=== PATIENT | male | born 1970 | race Hispanic/Latino ===

== ENCOUNTER 2020-08-22 00:41 | Emergency (ER) | payer OTHER, SELFPAY ==
[2020-08-22 01:21] LABS: #Basophils 0.1 thou/uL (0.0-0.2); #Eosinphils 0.1 thou/uL (0.0-0.7); #Lymphocytes 3.2 thou/uL (1.20-3.40); #Monocytes 0.6 thou/uL (0.11-0.59); #Neutrophils 2.9 thou/uL (1.40-6.50); %Basophils 2.1 % (0.0-1.0); %Eosinophils 2.1 % (0.0-10.0); %Lymphocytes 45.4 % (21.0-51.0); %Monocytes 8.5 % (0.0-10.0); %Neutrophils 41.9 % (42.0-75.0); Hemoglobin 13.9 g/dL (14.0-18.0); Mean Corpuscular HGB CONC 34.9 g/dL (32.0-36.0); Mean Corpuscular Hemoglobin 32.5 pg (27.0-31.0); Mean Platelet Volume 6.8 fL (7.4-10.4); Platelet Count 273 thou/uL (130-400); RBC Distribution Width 12.4 % (11.5-14.5); Red Blood Cell (RBC) Count 4.28 mill/uL (4.70-6.10)
[2020-08-22] MEDS ORDERED: Morphine 4 MG/ML VIAL ONE (01:23)
[2020-08-22 01:41] LABS: ALT (SGPT) 11 U/L (8-55); AST (SGOT) 12 U/L (5-34); Albumin 3.9 g/dL (3.5-5.0); Alkaline Phosphatase 63 U/L (40-110); Anion Gap 13 mmol/L (10-20); BUN (Urea Nitrogen) 6 mg/dL (8.4-25.7); Bilirubin, Total 0.6 mg/dL (0.2-1.2); Calc. Creatinine Clearance 0 mL/min (70-130); Calcium 8.9 mg/dL (7.8-10.44); Carbon Dioxide 24 mmol/L (22-29); Chloride 94 mmol/L (98-107); Globulin 3.2 g/dL (2.4-3.5); Glucose 138 mg/dL (70-105); Lipase 39 U/L (8-78); Potassium 3.5 mmol/L (3.5-5.1); Protein, Total 7.1 g/dL (6.0-8.3); Sodium 127 mmol/L (136-145)
[2020-08-22 02:41] LABS: Bilirubin Negative (Negative); Blood, Urine Negative (Negative); Clarity Clear (Clear); Glucose, Urine (Dipstick) 30 mg/dL (Negative); Ketone, Urine Negative (Negative); Leukocyte Negative Leu/uL (Negative); Nitrite Negative (Negative); Protein, Urine (Dipstick) Negative (Neg-Trace); Specific Gravity, Urine 1.036 (1.002-1.036); Urobilinogen Normal mg/dL (Less than 2); pH, Urine 6.5 (5.0-9.0)
--- NOTE | 2020-08-22 09:06 | CT ---
PRELIMINARY REPORT/[facility]/EMERGENCY AFTER HOURS PROCEDURE EXAM: CT Abdomen and Pelvis with Intravenous Contrast CLINICAL HISTORY: M50, RLQ PAIN STARTED EARLIER TODAY. PT ALSO COMPLAINS OF "SORE GENITALS." NO N/V/D/C. TECHNIQUE: Axial computed tomography images of the abdomen and pelvis with intravenous contrast. CONTRAST: With; ISOVUE 370,80mL COMPARISON: None provided. FINDINGS: LUNG BASES: No basilar airspace consolidation or pleural effusion. LIVER: Unremarkable. GALLBLADDER AND BILE DUCTS: Cholecystectomy. No ductal dilation. PANCREAS: Unremarkable. SPLEEN: Unremarkable. ADRENAL GLANDS: Unremarkable. KIDNEYS, URETERS, AND BLADDER: Unremarkable. No hydronephrosis or nephrolithiasis. No ureteral or bladder calculi. STOMACH AND BOWEL: No obstruction. No wall thickening. Mild scattered colonic diverticuli. No CT evidence of colitis o r acute diverticulitis. APPENDIX: No CT evidence for appendicitis. PERITONEUM: No free fluid. No free air. LYMPH NODES: No lymphadenopathy. REPRODUCTIVE: Unremarkable as visualized. VASCULATURE: No aortic aneurysm. BONES: No fracture or suspicious osseous abnormality. Moderate multilevel lumbar spondylosis. ABDOMINAL WALL AND SOFT TISSUES: Bilateral fat-containing inguinal hernias. IMPRESSION: No acute intra-abdominal or pelvic abnormality. ELECTRONICALLY SIGNED BY: Dirk Carrion DO Aug 22, 2020 1:55:39 AM HEAD IRRIGATOR This report is intended for review by the ordering physician only, in accordance of law. If you recei ve this report in error, please call [facility] at [phone]. FINAL REPORT FINAL REPORT: CT abdomen and pelvis with IV contrast PROVIDED CLINICAL HISTORY: Right lower quadrant pain COMPARISON: None FINDINGS/IMPRESSION: Agree with the preliminary interpretation given by [facility]. Transcribed Date/Time: 08/22/2020 9:18 AM
[2020-08-22] MEDS ORDERED: Iopamidol-370 76% 500 ML 1 ML ONE (12:09)
== END 2020-08-22 03:28 | disposition home or self-care (01) ==
LOC: ERS 00:41
DX: K59.00 Constipation, unspecified (principal); E87.1 Hypo-osmolality and hyponatremia
CPT/HCPCS: 36415; 74177; 80053; 81003; 83690; 85025; 96374; J2270; Q9967

== ENCOUNTER 2021-04-28 09:29 | Outpatient (CLI) | payer BC ==
[~2021-04-28 09:29] MED LIST: Iopamidol-370 76% 500 ML 1 ML ONE
== END 2021-04-28 09:30 | disposition home or self-care (01) ==
LOC: BICCT 09:29
PROVIDERS: ATTEND Internal Medicine Gastroenterology
DX: R10.11 Right upper quadrant pain (principal); R63.4 Abnormal weight loss; K21.9 Gastro-esophageal reflux disease without esophagitis; K22.2 Esophageal obstruction; R19.7 Diarrhea, unspecified; K76.89 Other specified diseases of liver; Z86.010 Personal history of colon polyps
CPT/HCPCS: 74177; Q9967

== ENCOUNTER 2021-05-27 09:40 | Outpatient (CLI) | payer BC | END 2021-05-27 09:41 | disposition home or self-care (01) | LOC: NM 09:40 | PROVIDERS: ATTEND Internal Medicine Gastroenterology | DX: R10.11 Right upper quadrant pain (principal); Z90.49 Acquired absence of other specified parts of digestive tract | CPT/HCPCS: 78226; A9537 ==

== ENCOUNTER 2022-10-25 18:58 | Inpatient (IN) | payer BC, OTHER ==
[~2022-10-25 18:58] MED LIST changes: +Iopamidol 370 76% 100 ML VIAL ONE; -Iopamidol-370 76% 500 ML 1 ML ONE
[2022-10-25 19:33] LABS: #Lymphocytes 1.6 thou/uL (1.20-3.40); #Monocytes 1.1 thou/uL (0.11-0.59); #Neutrophils 15.5 thou/uL (1.40-6.50); %Basophils 0.3 % (0.0-1.0); %Eosinophils 0.2 % (0.0-10.0); %Lymphocytes 8.8 % (21.0-51.0); %Monocytes 5.9 % (0.0-10.0); %Neutrophils 84.9 % (42.0-75.0); Hemoglobin 13.1 g/dL (14.0-18.0); Mean Corpuscular HGB CONC 33.2 g/dL (32.0-36.0); Mean Corpuscular Hemoglobin 30.7 pg (27.0-31.0); Mean Corpuscular Volume 92.4 fl (78.0-98.0); Mean Platelet Volume 7.6 fL (7.4-10.4); Platelet Count 208 10x3/uL (130-400); RBC Distribution Width 12.5 % (11.5-14.5); Red Blood Cell (RBC) Count 4.27 mill/uL (4.70-6.10); White Blood Cell (WBC) Count 18.3 10x3/uL (4.8-10.8)
[2022-10-25 19:57] LABS: ALT (SGPT) 17 U/L (8-55); AST (SGOT) 15 U/L (5-34); Albumin 3.9 g/dL (3.5-5.0); Alkaline Phosphatase 106 U/L (40-110); Anion Gap 16 mmol/L (10-20); BUN (Urea Nitrogen) 16 mg/dL (8.4-25.7); Bilirubin, Total 0.4 mg/dL (0.2-1.2); Calc. Creatinine Clearance 0 mL/min (70-130); Calcium 8.5 mg/dL (7.8-10.44); Carbon Dioxide 19 mmol/L (22-29); Chloride 105 mmol/L (98-107); Estimated GFR 80; Globulin 3.1 g/dL (2.4-3.5); Glucose 262 mg/dL (70-105); Potassium 4.2 mmol/L (3.5-5.1); Sodium 136 mmol/L (136-145)
[2022-10-25 19:59] LABS: Troponin I 0.013 ng/mL (< 0.028)
[2022-10-25 20:33] LABS: Prothrombin Time 13.8 sec (12.0-14.7)
[2022-10-25] MEDS ORDERED: Ondansetron ODT 4 MG TAB PO PRN (20:57)
[2022-10-25] MEDS ORDERED: Dextrose 5% in Water 1,000 ML IV PRN (20:57)
[2022-10-25] MEDS ORDERED: Ondansetron PF 4 MG/2 ML Vial IVP PRN (20:57)
[2022-10-25] MEDS ORDERED: TETANUS, DIPHTHERIA TOX,ADULT (TDVAX) 0.5 ML VIAL IM ONE (20:57)
[2022-10-25] MEDS ORDERED: Morphine 2 MG/ML VIAL SLOW IVP PRN (20:57)
[2022-10-25] MEDS ORDERED: Dextrose 50% Abboject 50 ML SYRINGE SLOW IVP PRN (20:57)
[2022-10-25] MEDS ORDERED: Sodium Chloride 0.9% 1,000 ML IV SCH (21:00)
[2022-10-25] MEDS ORDERED: fentaNYL 50 mcg/mL 1 mL Vial ONE (21:54)
[2022-10-25 22:31] LABS: Hemoglobin A1c 9.1 % (4.0-6.0)
[2022-10-25] MEDS: Morphine 4 MG/ML VIAL SLOW IVP PRN (22:44)
[2022-10-25] MEDS: Famotidine/PF 20 mg/2ml Vial SLOW IVP SCH (22:46)
[2022-10-25] MEDS: Sodium Chloride 0.9% 1,000 ML IV SCH (22:48)
[2022-10-25 23:05] VITALS: BMI 29.4
[2022-10-26] MEDS: Morphine 4 MG/ML VIAL SLOW IVP PRN ×2 (01:09→20:02)
[2022-10-26 01:19] LABS: Lactic Acid 2.1 mmol/L (0.5-2.2)
[2022-10-26 01:59] LABS: Hemoglobin 11.4 g/dL (14.0-18.0)
[2022-10-26 04:17] LABS: Mean Corpuscular HGB CONC 34.1 g/dL (32.0-36.0); Mean Corpuscular Hemoglobin 31.4 pg (27.0-31.0); Mean Corpuscular Volume 92.1 fl (78.0-98.0); Mean Platelet Volume 7.7 fL (7.4-10.4); Platelet Count 163 10x3/uL (130-400); RBC Distribution Width 12.6 % (11.5-14.5); Red Blood Cell (RBC) Count 3.51 mill/uL (4.70-6.10); White Blood Cell (WBC) Count 7.7 10x3/uL (4.8-10.8)
[2022-10-26 04:18] LABS: #Lymphocytes 1.7 thou/uL (1.20-3.40); #Monocytes 0.6 thou/uL (0.11-0.59); #Neutrophils 5.3 thou/uL (1.40-6.50); %Basophils 0.5 % (0.0-1.0); %Eosinophils 0.3 % (0.0-10.0); %Lymphocytes 21.9 % (21.0-51.0); %Monocytes 8.3 % (0.0-10.0)
[2022-10-26 04:22] LABS: Phosphorus 3.8 mg/dL (2.3-4.7)
[2022-10-26 04:26] LABS: Anion Gap 12 mmol/L (10-20); BUN (Urea Nitrogen) 17 mg/dL (8.4-25.7); Calc. Creatinine Clearance 137 mL/min (70-130); Calcium 7.8 mg/dL (7.8-10.44); Carbon Dioxide 20 mmol/L (22-29); Chloride 107 mmol/L (98-107); Estimated GFR 105; Glucose 211 mg/dL (70-105); Magnesium 1.8 mg/dL (1.6-2.6); Potassium 4.2 mmol/L (3.5-5.1); Sodium 135 mmol/L (136-145)
[2022-10-26] MEDS: Sodium Chloride 0.9% 1,000 ML IV SCH ×3 (06:13→23:30)
[2022-10-26 07:24] LABS: Hemoglobin 11.3 g/dL (14.0-18.0)
[2022-10-26] MEDS ORDERED: Insulin Regular 300 UNITS/3 ML VIAL SC PRN ×2 (07:27)
[2022-10-26] MEDS: Famotidine/PF 20 mg/2ml Vial SLOW IVP SCH ×2 (08:21→20:03)
[2022-10-26] MEDS ORDERED: Magnesium 2 GM/50 ML(in water) 2 GM in Premix Bag 1 BAG IVPB SCH (08:30)
[2022-10-26] MEDS ORDERED: traMADol HCl 50 MG TAB PO PRN (12:46)
[2022-10-26] MEDS ORDERED: Cyclobenzaprine 10 MG TAB PO PRN (12:46)
[2022-10-26 13:13] LABS: Hemoglobin 10.5 g/dL (14.0-18.0); Mean Corpuscular HGB CONC 33.3 g/dL (32.0-36.0); Mean Corpuscular Volume 93.2 fl (78.0-98.0); Mean Platelet Volume 7.4 fL (7.4-10.4); Platelet Count 163 10x3/uL (130-400); RBC Distribution Width 12.7 % (11.5-14.5); Red Blood Cell (RBC) Count 3.39 mill/uL (4.70-6.10); White Blood Cell (WBC) Count 7.3 10x3/uL (4.8-10.8)
[2022-10-26] MEDS ORDERED: traMADol HCl 50 MG TAB PO SCH (13:30)
[2022-10-26] MEDS ORDERED: Acetaminophen 500 MG TAB PO SCH (13:30)
[2022-10-26] MEDS: Gabapentin 100 MG CAP PO SCH ×2 (14:22→23:31)
[2022-10-26] MEDS: Acetaminophen 500 MG TAB PO SCH ×2 (18:07→23:30)
[2022-10-26] MEDS: traMADol HCl 50 MG TAB PO SCH ×2 (18:08→23:31)
[2022-10-26] MEDS: Senokot S 8.6-50 MG TAB PO SCH (20:03)
[2022-10-27] MEDS: Acetaminophen 500 MG TAB PO SCH ×4 (06:13→23:45)
[2022-10-27] MEDS: Gabapentin 100 MG CAP PO SCH ×3 (06:13→21:24)
[2022-10-27] MEDS: traMADol HCl 50 MG TAB PO SCH ×4 (06:14→23:43)
[2022-10-27 07:29] LABS: Hemoglobin 10.4 g/dL (14.0-18.0); Mean Corpuscular HGB CONC 33.4 g/dL (32.0-36.0); Mean Corpuscular Hemoglobin 31.2 pg (27.0-31.0); Mean Corpuscular Volume 93.3 fl (78.0-98.0); Mean Platelet Volume 7.7 fL (7.4-10.4); Platelet Count 147 10x3/uL (130-400); RBC Distribution Width 12.6 % (11.5-14.5); Red Blood Cell (RBC) Count 3.35 mill/uL (4.70-6.10)
[2022-10-27 07:44] LABS: Anion Gap 10 mmol/L (10-20); BUN (Urea Nitrogen) 7 mg/dL (8.4-25.7); Calc. Creatinine Clearance 156 mL/min (70-130); Carbon Dioxide 24 mmol/L (22-29); Chloride 107 mmol/L (98-107); Estimated GFR 108; Glucose 142 mg/dL (70-105); Magnesium 1.9 mg/dL (1.6-2.6); Phosphorus 2.2 mg/dL (2.3-4.7); Potassium 4.1 mmol/L (3.5-5.1); Sodium 137 mmol/L (136-145)
[2022-10-27 07:53] LABS: #Eosinphils 0.1 thou/uL (0.0-0.7); #Lymphocytes 1.4 thou/uL (1.20-3.40); #Monocytes 0.5 thou/uL (0.11-0.59); %Basophils 0.6 % (0.0-1.0); %Eosinophils 1.8 % (0.0-10.0); %Lymphocytes 20.4 % (21.0-51.0); %Monocytes 6.8 % (0.0-10.0); %Neutrophils 70.4 % (42.0-75.0); Hemoglobin 10.4 g/dL (14.0-18.0); Mean Corpuscular Hemoglobin 30.7 pg (27.0-31.0); Mean Corpuscular Volume 93.3 fl (78.0-98.0); Mean Platelet Volume 7.6 fL (7.4-10.4); Platelet Count 154 10x3/uL (130-400); RBC Distribution Width 12.7 % (11.5-14.5); Red Blood Cell (RBC) Count 3.38 mill/uL (4.70-6.10); White Blood Cell (WBC) Count 7.1 10x3/uL (4.8-10.8)
[2022-10-27] MEDS: Sodium Chloride 0.9% 1,000 ML IV SCH (08:29)
[2022-10-27] MEDS: Famotidine/PF 20 mg/2ml Vial SLOW IVP SCH ×2 (08:30→21:26)
[2022-10-27] MEDS: Polyethylene Glycol 3350 17 GM Packet PO SCH (08:30)
[2022-10-27] MEDS: Senokot S 8.6-50 MG TAB PO SCH ×2 (08:30→21:26)
[2022-10-27] MEDS ORDERED: Potassium Phosphate 30 MMOL, Magnesium Sulfate 2 GM in Sodium Chloride 0.9% 250 ML 250 ML IVPB SCH (08:45)
[2022-10-27] MEDS ORDERED: hydrALAZINE 20 MG/ML VIAL SLOW IVP PRN (18:41)
[2022-10-28 03:55] LABS: #Eosinphils 0.1 thou/uL (0.0-0.7); #Lymphocytes 2.4 thou/uL (1.20-3.40); #Monocytes 0.5 thou/uL (0.11-0.59); #Neutrophils 3.4 thou/uL (1.40-6.50); %Basophils 0.6 % (0.0-1.0); %Eosinophils 2.3 % (0.0-10.0); %Lymphocytes 36.5 % (21.0-51.0); %Monocytes 7.8 % (0.0-10.0); %Neutrophils 52.8 % (42.0-75.0); Hemoglobin 10.6 g/dL (14.0-18.0); Mean Corpuscular HGB CONC 32.4 g/dL (32.0-36.0); Mean Corpuscular Hemoglobin 30.2 pg (27.0-31.0); Mean Corpuscular Volume 93.3 fl (78.0-98.0); Mean Platelet Volume 7.3 fL (7.4-10.4); Platelet Count 145 10x3/uL (130-400); RBC Distribution Width 12.6 % (11.5-14.5); Red Blood Cell (RBC) Count 3.49 mill/uL (4.70-6.10); White Blood Cell (WBC) Count 6.4 10x3/uL (4.8-10.8)
[2022-10-28] MEDS: Acetaminophen 500 MG TAB PO SCH ×3 (06:24→17:59)
[2022-10-28] MEDS: Gabapentin 100 MG CAP PO SCH ×3 (06:25→21:48)
[2022-10-28] MEDS: traMADol HCl 50 MG TAB PO SCH ×3 (06:26→17:59)
[2022-10-28] MEDS: Famotidine/PF 20 mg/2ml Vial SLOW IVP SCH ×2 (09:18→21:47)
[2022-10-28] MEDS: Senokot S 8.6-50 MG TAB PO SCH ×2 (09:18→21:48)
[2022-10-28] MEDS: Amlodipine 5 MG TAB PO SCH (09:18)
[2022-10-28] MEDS: Polyethylene Glycol 3350 17 GM Packet PO SCH (09:19)
[2022-10-28] MEDS ORDERED: Lisinopril 10 MG TAB PO SCH ×2 (12:01→13:00)
[2022-10-28] MEDS ORDERED: hydrALAZINE 20 MG/ML VIAL SLOW IVP PRN (14:08)
[2022-10-28] MEDS: metFORMIN 500 MG TAB PO SCH (17:59)
[2022-10-29] MEDS: Acetaminophen 500 MG TAB PO SCH ×3 (00:20→13:21)
[2022-10-29] MEDS: traMADol HCl 50 MG TAB PO SCH ×3 (00:20→13:22)
[2022-10-29 05:27] LABS: Hemoglobin 10.3 g/dL (14.0-18.0)
[2022-10-29] MEDS: Gabapentin 100 MG CAP PO SCH ×2 (06:27→13:22)
[2022-10-29] MEDS ORDERED: Lisinopril 10 MG TAB PO SCH (09:00)
[2022-10-29] MEDS: Atorvastatin Calcium 20 MG TAB PO SCH (09:31)
[2022-10-29] MEDS: metFORMIN 500 MG TAB PO SCH (09:31)
[2022-10-29] MEDS: Polyethylene Glycol 3350 17 GM Packet PO SCH (09:32)
[2022-10-29] MEDS: Senokot S 8.6-50 MG TAB PO SCH (09:32)
[2022-10-29] MEDS: Famotidine/PF 20 mg/2ml Vial SLOW IVP SCH (09:32)
[2022-10-29] MEDS: Amlodipine 5 MG TAB PO SCH (09:32)
[2022-10-29 11:29] VITALS: BP 127/83; TEMP 98
== END 2022-10-29 13:30 | disposition home or self-care (01) | DRG 815 ==
LOC: ERS 18:58 → CCU 20:57 → SJJU 10-28 07:50
PROVIDERS: ADMIT Surgery; ATTEND Surgery
DX: S36.032A Major laceration of spleen, initial encounter (principal); S22.42XA Multiple fractures of ribs, left side, initial encounter for closed fracture; I10 Essential (primary) hypertension; E11.9 Type 2 diabetes mellitus without complications; E78.00 Pure hypercholesterolemia, unspecified; W01.0XXA Fall on same level from slipping, tripping and stumbling without subsequent striking against object, initial encounter; Y92.69 Other specified industrial and construction area as the place of occurrence of the external cause; Y99.0 Civilian activity done for income or pay; Z90.2 Acquired absence of lung [part of]; Z86.73 Personal history of transient ischemic attack (TIA), and cerebral infarction without residual deficits; Z87.01 Personal history of pneumonia (recurrent); Z90.49 Acquired absence of other specified parts of digestive tract; Z79.899 Other long term (current) drug therapy; Z79.82 Long term (current) use of aspirin
CPT/HCPCS: 36415; 36416; 71260; 80048; 80053; 83036; 83605; 83735; 84100; 84484; 85014; 85018; 85025; 85027; 85610; 85730; 86850; 86900; 86901; 90714; 93005; 96374; G0390; J1815; J2270; J3010; J3475; J7050; Q9967; S0028